=== PATIENT | female | born 1990 | race Hispanic/Latino ===

== ENCOUNTER 2025-02-14 17:24 | Emergency (ER) | payer BC ==
[~2025-02-14] VITALS: Ht 160 cm; Wt 56.7 kg
--- NOTE | 2025-02-14 17:51 | ERN ---
ED Note History of Present Illness Stated Complaint: CHEST PAIN X2 WEEKS Chief Complaint: Chest Pain Time Seen by MD: 17:32 Time Seen by Midlevel: 17:32 Dictation: Patient is a 34-year-old female with a no significant past medical history who presents to the emergency department with a complaints of intermediate chest pain for two weeks. Patient reports chest pain lasts about an hour. Patient also reports left arm nontraumatic heaviness onset today which is causing her concerns. Reports that she is seeing Dr. Gillette welding tester and is scheduled for an echo tomorrow. Reports she is spoke to Dr. Gillette before coming who told her it was probably unnecessary but she just wanted to make sure. patient reports occasional palpitations. Reports pain gets relief with aspirin and ibuprofen. Allergies: Coded Allergies: No Known Drug Allergies (Unverified Allergy, Unknown, 02/14/25) Past Medical History Past Medical History: No Pertinent History Surgical History: None RN Note Reviewed/Agreed w/PFSH: Yes Review of System Dictation Constitutional: Negative for fever,chills, and weight loss Eyes: Negative for injury, pain,redness, and discharge ENT: Negative for injury,pain or swelling Cardiovascular: Negative for palpitations, and edema positive for chest pain, left arm pain Respiratory: Negative for shortness of breath, cough, and wheezing, Abdomen/GI: Negative for abdominal pain, nausea, vomiting, diarrhea, and constipation Back: Negative for injury and pain : Negative for injury, bleeding and discharge MS/Extremity: Negative for injury and deformity Skin: Negative for rash, and discoloration Neuro: Negative for headache, weakness, numbness, tingling, and seizure Psych: Negative for suicide ideation, homicidal ideation, and hallucinations Initial Vital Sign VS Vital Signs Date Time Temp Pulse Resp B/P (MAP) Pulse Ox O2 Delivery O2 Flow Rate FiO2 02/14/25 17:31 98.1 94 14 131/81 99 Room Air 0 02/14/25 18:22 21 Physical Exam Dictation Vital Signs reviewed General Appearance: Alert, oriented x 3, no acute distress, well developed, nourished. Head and Face: non-traumatic. Eyes: PERRL, pink conjunctivas, eyelid no trauma, anterior chamber with arcus senilis. Ears: Pinnas intact and no signs of trauma or erythema ear canals clear and no discharge TM no erythema Nose: No discharge, no bleeding. Oropharynx: Mouth normal, tongue pink. pharynx clear,no erythema, tonsils no exudates, no abscesses noted, mucous membrane moist Neck: Supple, non-tender, no thyromegaly, no masses, no JVD, no bruits Breast:Deferred Chest:No tenderness, no crepitus, no paradoxical movement, no retractions Lungs:Clear, well-ventilated, symmetric, no rales, no wheezing, no rhonchi, no stridor, good breath sounds bilaterally Heart: Regular rate, regular rhythm, no murmur, no gallops Vascular: no peripheral edema, Abdomen: Soft, positive bowel sounds, nondistended, no guarding, nontender, no rebound, no masses no hepatomegaly, no splenomegaly, no Alcantara's sign, no hernias. Rectal: Deferred Genital: Deferred Neurological: Normal speech, motor function intact, sensory function intact Musculoskeletal: Neck nontender, full range of motion, back nontender, full range of motion, Extremities: nontender, full range of motion Skin: Color pink, dry, no turgor, no rash, no lacerations, no abrasions, no contusions. Lymphatic: Deferred Results (Laboratory/Radiology) Laboratory/Radiology Laboratory Tests Test 02/14/25 18:06 White Blood Count 7.7 K/uL (4.8-10.8) Red Blood Count 4.33 MIL/uL (4.00-5.50) Hemoglobin 12.6 g/dL (12.0-16.0) Hematocrit 37.9 % (36-48) Mean Corpuscular Volume 87.5 fL (79-99) Mean Corpuscular Hemoglobin 29.1 pg (27.0-33.0) Mean Corpuscular Hemoglobin Concent 33.2 g/dL (32.0-36.0) Red Cell Distribution Width 12.8 % (11.0-15.5) Platelet Count 204 K/uL (130-400) Mean Platelet Volume 11.9 fL (7.5-10.5) H Immature Granulocyte % (Auto) 0.3 % (0-1) Neutrophils (%) (Auto) 65.5 % (40.0-77.0) Lymphocytes (%) (Auto) 25.2 % (21.0-51.0) Monocytes (%) (Auto) 7.0 % (3.0-13.0) Eosinophils (%) (Auto) 1.2 % (0.0-8.0) Basophils (%) (Auto) 0.8 % (0.0-5.0) Neutrophils # (Auto) 5.0 K/uL (1.8-7.7) Lymphocytes # (Auto) 1.9 K/uL (1.0-4.8) Monocytes # (Auto) 0.5 K/uL (0.1-1.0) Eosinophils # (Auto) 0.09 K/uL (0.00-0.70) Basophils # (Auto) 0.06 K/uL (0.00-0.20) Absolute Immature Granulocyte (auto 0.02 K/uL (0-1) Nucleated Red Blood Cells 0.0 % (0.0-0.19) Sodium Level 140 mmol/L (136-145) Potassium Level 3.1 mmol/L (3.5-5.1) L Chloride Level 106 mmol/L (101-111) Carbon Dioxide Level 26 mmol/L (21-32) Blood Urea Nitrogen 10 mg/dL (7-18) Creatinine 0.7 mg/dL (0.5-1.0) Glomerular Filtration Rate Calc 116 mL/min (>90) Random Glucose 98 mg/dL (70-105) Total Calcium 9.0 mg/dL (8.5-10.1) Magnesium Level 2.20 mg/dL (1.80-2.40) Total Creatine Kinase 50 U/L (21-232) Troponin I High Sensitivity 12 ng/L (4-50) Serum Test, Qualitative NEGATIVE (NEGATIVE) REASON: cp ORDERING PHYSICIAN: SHERRELL DAVIS [employer] PROCEDURE: CXR1VW - CHEST 1VW PORTABLE CHEST RADIOGRAPH INDICATION: cp COMPARISON: None FINDINGS: Heart size is normal. The pulmonary vascularity and rosy appear normal. No abnormal pulmonary parenchymal opacity or consolidation identified. No significant pleural effusion noted. No pneumothorax detected. IMPRESSION: No radiographic evidence for any acute cardiopulmonary process. Labs Reviewed?: Yes EKG: (+) rhythm (Sinus rhythm) EKG Comment: Date:02/14/2025 Time:1727 Ventricular rate:90 CO interval:131 QRS duration:102 QT/QTc:354 EKG interpretation: Reviewed by ED Attending sinus rhythm no STEMI ED Course ED Course Orders Procedure Category Date Status Time Cbc With Differential LAB 02/14/25 Complete 17:43 Chest 1vw RAD 02/14/25 Resulted 17:43 Magnesium LAB 02/14/25 Complete 17:43 Creatine Kinase, Total LAB 02/14/25 Complete 17:43 Troponin I High LAB 02/14/25 Complete Sensitivity 17:43 Aspirin 325mg Tab PHA 02/14/25 Complete (Aspirin 325mg Tab) 18:00 Basic Metabolic Panel LAB 02/14/25 Complete 17:43 Testing, LAB 02/14/25 Complete Serum Hcg 17:43 12 Lead Ekg Tracing- EKG 02/14/25 Complete Technical 17:43 Potassium Bicarb/Cit PHA 02/14/25 Complete Ac 25meq (K-Lyte Ta 19:00 Current Medications Medications (Trade) Dose Ordered Sig/Nacho Route PRN Reason Start Time Stop Time Status Last Admin Dose Admin Aspirin (Aspirin 325mg Tab) 325 mg ONCE ONCE PO 02/14/25 18:00 02/14/25 18:01 DC 02/14/25 18:10 Potassium Bicarbonate (K-Lyte Tablet Eff 25 Meq Tablet.eff) 25 meq ONCE ONCE PO 02/14/25 19:00 02/14/25 19:01 DC 02/14/25 19:00 Vital Signs Date Time Temp Pulse Resp B/P (MAP) Pulse Ox O2 Delivery O2 Flow Rate FiO2 02/14/25 18:56 82 18 137/83 100 Room Air* 0 21 02/14/25 18:22 98.1 80 17 137/83 100 Room Air* 0 21 02/14/25 17:31 98.1 94 14 131/81 99 Room Air 0 HEART Score Response (Comments) Value History: Low suspicion (0) 0 EKG: Normal 0 Age: < 45yrs (0) 0 Risk Factors: No known risk factors (0) 0 Initial Troponin: Normal limit (0) 0 Total 0 Medical Decision Making MDM Patient is a 34-year-old female with a no significant past medical history who presents to the emergency department with a complaints of intermediate chest pain for two weeks. Patient reports chest pain lasts about an hour. Patient also reports left arm nontraumatic heaviness onset today which is causing her concerns. Reports that she is seeing Dr. Gillette welding tester and is scheduled for an echo tomorrow. Reports she is spoke to Dr. Gillette before coming who told her it was probably unnecessary but she just wanted to make sure. patient reports occasional palpitations. Reports pain gets relief with aspirin and ibuprofen. CBC showed no leukocytosis, no anemia, chemistry showed mild hypokalemia which was replaced, normal kidney function, negative troponin. X-ray showed no acute pathology. Patient with low risk for any cardiac etiology. No medical history. Patient reports pain is relieved with ibuprofen and reports pain to palpation. Reports pain for 2 weeks. Patient has an appointment scheduled for tomorrow Cardiology tomorrow for an echo.On physical exam, patient is no acute distress, stable vital sings. Differential diagnosis: ACS, anxiety, pneumothorax, costochondritis Need for hospitalization: Patient does not meet criteria for hospitalization. There are no social concerns with this patient. DX & DISP Disposition: Discharge Departure Impression: Primary Impression: Chest pain, atypical Condition: Stable Additional Instructions: Please follow up with tomorrow. if symptoms worsen please return to ER. FOLLOW-UP WITH PRIMARY CARE PROVIDER IN 1 TO 2 DAYS. TAKE MEDICATIONS DIRECTED HERE IN THE EMERGENCY ROOM. OKAY TO CONTINUE HOME MEDICATIONS UNLESS OTHERWISE DISCUSSED DURING YOUR VISIT IN THE EMERGENCY ROOM TODAY. RETURN TO YOUR NEAREST EMERGENCY ROOM IF SYMPTOMS WORSEN OR IF THERE IS NO IMPROVEMENT. CALL 911 IF YOU NEED IMMEDIATE ASSISTANCE. TAKE TYLENOL OR MOTRIN [id number] NEEDED AND IF NO CONTRAINDICATIONS ARE PRESENT. INCREASE ORAL HYDRATION. A WOUND CULTURE OR URINE CULTURE WAS ORDERED HERE IN THE EMERGENCY ROOM DEPARTMENT PLEASE FOLLOW-UP WITH PRIMARY CARE PROVIDER AND ADVISE THEM TO GET REPEAT PORTS FROM OUR FACILITY. IF YOU HAD ANY HUNTER WRAP/SPLINTS THAT WERE APPLIED HERE, PLEASE DO NOT REMOVE THEM UNTIL YOU SEE YOUR PRIMARY CARE OR SPECIALTY. Referrals: SELF,REFERRAL (PCP) Time of Disposition: 19:02 I have reviewed the case, and I agree with, Diagnosis and Plan SHERRELL DAVIS February 14, 2025 17:51 MELECIO BLANTON DO February 16, 2025 04:43
[2025-02-14] MEDS: ASPIRIN 325MG TAB PO ONE (18:10)
[2025-02-14 18:18] LABS: BASOPHILS # (AUTO) 0.06 K/uL (0.00-0.20); BASOPHILS % (AUTO) 0.8 % (0.0-5.0); EOSINOPHILS # (AUTO) 0.09 K/uL (0.00-0.70); EOSINOPHILS % (AUTO) 1.2 % (0.0-8.0); HEMATOCRIT 37.9 % (36-48); IMMATURE GRANULOCYTE ABSOLUTE 0.02 K/uL (0-1); LYMPHOCYTES # (AUTO) 1.9 K/uL (1.0-4.8); LYMPHOCYTES % (AUTO) 25.2 % (21.0-51.0); MEAN CORPUSCULAR HEMOGLOBIN 29.1 pg (27.0-33.0); MEAN CORPUSCULAR HGB CONC 33.2 g/dL (32.0-36.0); MEAN CORPUSCULAR VOLUME 87.5 fL (79-99); MONOCYTES # (AUTO) 0.5 K/uL (0.1-1.0); NEUTROPHILS % (AUTO) 65.5 % (40.0-77.0); PLATELET COUNT (AUTO) 204 K/uL (130-400); RED BLOOD CELL COUNT(AUTO) 4.33 MIL/uL (4.00-5.50); RED CELL DISTRIBUTION WIDTH 12.8 % (11.0-15.5); WHITE BLOOD COUNT (AUTO) 7.7 K/uL (4.8-10.8)
[2025-02-14 18:22] VITALS: TEMP 98.1
[2025-02-14 18:30] LABS: CREATININE 0.7 mg/dL (0.5-1.0); MAGNESIUM 2.2 mg/dL (1.80-2.40); POTASSIUM 3.1 mmol/L (3.5-5.1)
--- NOTE | 2025-02-14 18:30 | HMCIMG ---
PORTABLE CHEST RADIOGRAPH INDICATION: cp COMPARISON: None FINDINGS: Heart size is normal. The pulmonary vascularity and rosy appear normal. No abnormal pulmonary parenchymal opacity or consolidation identified. No significant pleural effusion noted. No pneumothorax detected. IMPRESSION: No radiographic evidence for any acute cardiopulmonary process.
[2025-02-14 18:56] VITALS: BP 137/83; PULSE 82; RESP 18; O2SAT 100
[2025-02-14] MEDS: PoTASSium BIcarbonate/CIT AC 25 MEQ TABLET.EFF PO ONE (19:00)
--- NOTE | 2025-02-15 06:22 | EKG ---
[facility] Test Date: 2025-02-14 Test Time: 17:27:06 Pat Name: MARILYN POST Department: [facility] Room: Gender: Female [employer]: [id number] : 1990 Requested By: SHERRELL DAVIS Order Number: [id number] Reading MD: Measurements Intervals [place] Rate: 90 P: 84 OR: 131 QRS: 10 QRSD: 102 T: 63 QT: 354 QTc: 433 Interpretive Statements Sinus rhythm Probable left atrial enlargement No previous ECG available for comparison Please click the below link to view image of tracing.
== END 2025-02-14 19:11 | disposition home or self-care (01) ==
LOC: EDH 17:24
DX: R07.89 Other chest pain (principal)
CPT/HCPCS: 36415; 71045; 80048; 82550; 83735; 84484; 84703; 85025; 93005; 99283; 99284